=== PATIENT | female | born 1945 | race Caucasian/White ===

== ENCOUNTER 2017-10-30 01:07 | Emergency (ER) | payer MEDICARE, BC ==
[~2017-10-30] VITALS: Ht 177.8 cm; Wt 80.7 kg
[~2017-10-30 01:07] MED LIST: ACETAMINOPHEN-1 EAC1 PO; ASA81BEC; ASPIRIN81 M2 PO; AUGMENTIN 875-1 EACH PO; BONIVA150 MG PO; CALCIUM 500 +1 EAC4 PO; CALCIUM 600 +1 EAC9 PO; CATAPRES0.1 MG PO; CENTRUM SILVER1 EAC4 PO; CLARITIN10 M2 PO; CLARITIN10 MG PO; CO Q-10100 MG PO; DELTASONE20 MG PO; FISH OIL SOFTG1 EACH PO; FLEXERIL PO; HYDROCODON-ACE1 EAC7 PO; HYDROXYZINE HCL25 M1 PO; KEFLEX500 MG PO; LIPITOR10 MG PO; LISINOPRIL10 MG PO; LIVALO2 MG PO; LOTENSIN20 MG PO; LUTEIN20 MG PO; MAGIC MOUTHWASH SWISH&SPIT; MULTI-VITAMIN1 EAC5 PO; NAPROSYN500 MG PO; NITROGLYCERIN0.4 MG; NORCO 5-325 TA1 EACH PO; OMEGA-3 FISH1200 MG PO; PLAVIX 75 MG TA75 M1 PO; RESTASIS1 EACH OPHTHALMIC; SINGULAIR 10 MG10 M1 PO; SORINE 80 MG TA80 MG PO; TOPROL XL25 MG PO; VIMOVO 500-201 EACH; VITAMIN B-650 M1 PO; XARELTO10 MG PO; ZOFRAN ODT4 MG PO; ZPAK PO
[2017-10-30 01:16] VITALS: BP 186/89
== END 2017-10-30 01:30 | disposition home or self-care (01) ==
LOC: M.ERS 01:07
DX: T75.89XA Other specified effects of external causes, initial encounter (principal); Y92.89 Other specified places as the place of occurrence of the external cause; I48.91 Unspecified atrial fibrillation; I10 Essential (primary) hypertension; E78.00 Pure hypercholesterolemia, unspecified; Z88.8 Allergy status to other drugs, medicaments and biological substances

== ENCOUNTER 2017-12-21 21:42 | Emergency (ER) | payer MEDICARE, BC ==
[~2017-12-21] VITALS: Ht 172.7 cm; Wt 79.4 kg
[2017-12-21] MEDS ORDERED: NORVASC5 MG (22:00)
[2017-12-21] MEDS ORDERED: FLONASE 0.05%50 MCG (22:01)
[2017-12-21] MEDS ORDERED: FISH OIL 1,001000 M2 (22:01)
[2017-12-21] MEDS ORDERED: TUMS PO (22:01)
[2017-12-21 22:08] LABS: URINE BILIRUBIN NEGATIVE (Negative); URINE BLOOD 2+ (Negative); URINE CLARITY CLEAR; URINE COLOR YELLOW; URINE GLUCOSE-RANDOM NEGATIVE (Negative); URINE KETONES NEGATIVE (Negative); URINE LEUKOCYTES-REFLEX NEGATIVE (Negative); URINE NITRITE-REFLEX NEGATIVE (Negative); URINE PROTEIN NEGATIVE (Negative); URINE SPECIFIC GRAVITY 1.015 (1.005-1.030); URINE UROBILINOGEN 0.2 E.U./dl (0.2-1.0)
[2017-12-21 22:16] LABS: ABSOLUTE BASOPHILS 0.1 thou/uL (0.0-0.2); ABSOLUTE EOSINOPHILS 0.1 thou/uL (0.0-0.7); ABSOLUTE LYMPHOCYTES 1.9 thou/uL (0.8-5.3); ABSOLUTE MONOCYTES 0.9 thou/uL (0.0-1.2); ABSOLUTE NEUTROPHILS 5.5 thou/uL (1.6-8.1); BASOPHILS 0.9 %; EOSINOPHILS 0.9 %; HEMATOCRIT 40.8 % (37.0-47.0); HEMOGLOBIN 13.8 gm/dL (12.0-15.0); LYMPHOCYTES 22.8 %; MCH 31.7 pg (26.0-34.0); MCHC 33.7 g/dL (28.0-37.0); MPV 8.3 fl. (7.2-11.1); NUCLEATED RBCS 0 /100WBC; PLATELET COUNT* 240 thou/uL (150-400); POLYS 64.4 %; RBC 4.34 mil/uL (4.20-5.00); RDW-CV 13.7 % (10.5-14.5); WBC 8.5 thou/uL (4.0-11.0)
[2017-12-21 22:20] LABS: CASTS None Seen /LPF (None Seen); CRYSTALS None Seen /LPF (None Seen); MUCUS 0-3 Light strn/LPF (None Seen); SQUAMOUS 0-3 Few /LPF (0-3); URINE RBC >20 Many /HPF (0-2); URINE WBC-REFLEX 0-5 Rare /HPF (0-5)
[2017-12-21 22:25] LABS: ANION GAP 7 mmol/L (7-16); BUN 22 mg/dL (7-18); CALCIUM 8.9 mg/dL (8.5-10.1); CHLORIDE 102 mmol/L (98-107); CO2 30 mmol/L (21-32); CREATININE 0.7 mg/dL (0.6-1.3); GLUCOSE 101 mg/dL (70-99); POTASSIUM 3.9 mmol/L (3.5-5.1); SODIUM 139 mmol/L (136-145)
[2017-12-21 22:37] LABS: ALBUMIN 3.8 g/dL (3.4-5.0); ALKALINE PHOSPHATASE 74 U/L (46-116); NT-PRO BRAIN NAT PEPTIDE 75 pg/mL (<300); SGOT 22 U/L (15-37); SGPT 22 U/L (30-65); TOTAL BILIRUBIN 0.6 mg/dL (<0.1-1.0); TOTAL PROTEIN 9.4 g/dL (6.4-8.2); TROPONIN-I LEVEL <0.06 ng/mL (<0.06)
[2017-12-21] MEDS ORDERED: OSELB75 PO (23:03)
[2017-12-21 23:24] VITALS: BP 131/65
--- NOTE | 2017-12-22 11:01 | EKG ---
[place] [address] ELECTROCARDIOGRAM REPORT Name: DENIA MAY [id number] Admission: 12/21/17 Attend Phys: Discharge: 12/21/17 Date of : 45 Report #: [id number] THIS REPORT FOR: //name// [facility] ED Test Date: 2017-12-21 Test Time: 21:53:46 Pat Name: DENIA MAY Department: Room: Gender: F Cotton Farmer: INGRID : 1945 Requested By: Cristopher Delgado Order Number: [id number] MD: Rajinder Iqbal Measurements Intervals [place] Rate: 82 P: 65 OR: 190 QRS: 28 QRSD: 132 T: 6 QT: 406 QTc: 475 Interpretive Statements Sinus rhythm Compared to ECG 08/19/2015 23:09:14 First degree AV block no longer present Incomplete right bundle-branch block no longer present Electronically Signed On 12-22-2017 11:00:53 CO OP by Rajinder Iqbal [email or web address] <ELECTRONICALLY SIGNED> By: Rajinder Iqbal MD, [facility] 12/22/17 1100 52 52 Rajinder Iqbal MD, FACC /EPI
== END 2017-12-21 23:25 | disposition home or self-care (01) ==
LOC: M.ERS 21:42
PROVIDERS: Emergency Medicine Emergency Medical Services
DX: J09.X2 Influenza due to identified novel influenza A virus with other respiratory manifestations (principal); J10.1 Influenza due to other identified influenza virus with other respiratory manifestations; I10 Essential (primary) hypertension; I48.91 Unspecified atrial fibrillation; M54.9 Dorsalgia, unspecified; E78.00 Pure hypercholesterolemia, unspecified; Z88.8 Allergy status to other drugs, medicaments and biological substances

== ENCOUNTER → 2018-05-05 | Outpatient (CLI) | payer MEDICARE, BC ==
[~2018-05-05] MED LIST changes: +FISH OIL 1,001000 M2; +FLONASE 0.05%50 MCG; +MEDROL DOSPAK21 TA1 PO; +NORVASC5 MG; +NORVASC5 MG PO; +OSELB75 PO; +PANTOPRAZOLE SO40 M1 PO; +TUMS PO
[2018-05-05 10:18] LABS: CREATININE 0.6 mg/dL (0.6-1.3)
== END ==
LOC: M.LAB 09:53
PROVIDERS: Urology
DX: R31.29 Other microscopic hematuria (principal); M81.0 Age-related osteoporosis without current pathological fracture

== ENCOUNTER 2018-05-10 23:13 | Emergency (ER) | payer MEDICARE, BC ==
[~2018-05-10] VITALS: Ht 170.2 cm; Wt 75.3 kg
[~2018-05-10 23:13] MED LIST changes: -MEDROL DOSPAK21 TA1 PO; -NORVASC5 MG PO; -PANTOPRAZOLE SO40 M1 PO
[2018-05-10] MEDS ORDERED: NORVASC5 MG PO (23:33)
[2018-05-11 00:01] LABS: ABSOLUTE BASOPHILS 0.1 thou/uL (0.0-0.2); ABSOLUTE EOSINOPHILS 0.1 thou/uL (0.0-0.7); ABSOLUTE LYMPHOCYTES 1.8 thou/uL (0.8-5.3); ABSOLUTE MONOCYTES 0.7 thou/uL (0.0-1.2); ABSOLUTE NEUTROPHILS 3.7 thou/uL (1.6-8.1); BASOPHILS 1.3 %; EOSINOPHILS 1.3 %; HEMOGLOBIN 12.9 gm/dL (12.0-15.0); LYMPHOCYTES 28.5 %; MCH 31.2 pg (26.0-34.0); MCV 94.7 fL (80.0-100.0); MONOCYTES 10.7 %; MPV 8.3 fl. (7.2-11.1); NUCLEATED RBCS 0 /100WBC; PLATELET COUNT* 226 thou/uL (150-400); POLYS 58.2 %; RBC 4.12 mil/uL (4.20-5.00); RDW-CV 13.6 % (10.5-14.5); WBC 6.3 thou/uL (4.0-11.0)
[2018-05-11 00:17] LABS: ANION GAP 3 mmol/L (7-16); BUN 20 mg/dL (7-18); CALCIUM 9.3 mg/dL (8.5-10.1); CHLORIDE 103 mmol/L (98-107); CO2 31 mmol/L (21-32); CREATININE 0.6 mg/dL (0.6-1.3); GLUCOSE 115 mg/dL (70-99); POTASSIUM 3.6 mmol/L (3.5-5.1); SODIUM 137 mmol/L (136-145)
[2018-05-11 00:24] LABS: ALBUMIN 3.3 g/dL (3.4-5.0); ALKALINE PHOSPHATASE 87 U/L (46-116); LIPASE 153 U/L (73-393); SGOT 17 U/L (15-37); SGPT 21 U/L (30-65); TOTAL BILIRUBIN 0.3 mg/dL (<0.1-1.0); TOTAL PROTEIN 8.6 g/dL (6.4-8.2); TROPONIN-I LEVEL <0.06 ng/mL (<0.06)
[2018-05-11] MEDS ORDERED: MEDROL DOSPAK21 TA1 PO (00:36)
[2018-05-11 00:40] VITALS: BP 120/70
--- NOTE | 2018-05-11 14:31 | EKG ---
[place] [address] ELECTROCARDIOGRAM REPORT Name: DENIA MAY Room: [facility]#: [id number] Admission: 05/10/18 Attend Phys: Discharge: 05/11/18 Date of : 45 Report #: [id number] THIS REPORT FOR: //name// [facility] ED Test Date: 2018-05-10 Test Time: 23:29:36 Pat Name: DENIA MAY Department: Room: Gender: F Race Engine Builder: : 1945 Requested By: Mj Mandujano Order Number: [id number] MD: Austin Estrella Measurements Intervals [place] Rate: 71 P: 69 NE: 189 QRS: 19 QRSD: 100 T: 31 QT: 430 QTc: 468 Interpretive Statements Sinus rhythm Probable left atrial enlargement Low voltage, precordial leads Baseline wander in lead(s) I Compared to ECG 12/21/2017 21:53:46 Low QRS voltage now present Electronically Signed On 05-11-2018 14:31:20 CDT by Austin Estrella [email or web address] <ELECTRONICALLY SIGNED> By: Austin Estrella MD, FACC 05/11/18 1431 2329 2329 Austin Estrella MD, [facility] /EPI
== END 2018-05-11 00:41 | disposition home or self-care (01) ==
LOC: M.ERS 23:13
PROVIDERS: Emergency Medicine
DX: M54.9 Dorsalgia, unspecified (principal); I48.91 Unspecified atrial fibrillation; I10 Essential (primary) hypertension; E78.00 Pure hypercholesterolemia, unspecified; Z88.8 Allergy status to other drugs, medicaments and biological substances

== ENCOUNTER 2018-07-13 11:58 | Observation (INO) | payer MEDICARE, BC ==
[~2018-07-13] VITALS: Ht 172.7 cm; Wt 75.7 kg
[~2018-07-13 11:58] MED LIST changes: +MEDROL DOSPAK21 TA1 PO; +NORVASC5 MG PO
[2018-07-13 12:21] LABS: ABSOLUTE BASOPHILS 0.1 thou/uL (0.0-0.2); ABSOLUTE EOSINOPHILS 0.1 thou/uL (0.0-0.7); ABSOLUTE LYMPHOCYTES 1.9 thou/uL (0.8-5.3); ABSOLUTE MONOCYTES 0.5 thou/uL (0.0-1.2); ABSOLUTE NEUTROPHILS 3.9 thou/uL (1.6-8.1); BASOPHILS 1.3 %; EOSINOPHILS 0.9 %; HEMOGLOBIN 12.9 gm/dL (12.0-15.0); LYMPHOCYTES 29.8 %; MCH 31.2 pg (26.0-34.0); MCHC 33.2 g/dL (28.0-37.0); MONOCYTES 8.1 %; MPV 7.8 fl. (7.2-11.1); NUCLEATED RBCS 0 /100WBC; PLATELET COUNT* 273 thou/uL (150-400); POLYS 59.9 %; RBC 4.15 mil/uL (4.20-5.00); RDW-CV 13.9 % (10.5-14.5); WBC 6.4 thou/uL (4.0-11.0)
[2018-07-13 12:36] LABS: APTT 38.8 Seconds (25.0-31.3); INR 1.1; PROTIME 11.3 Seconds (9.20-11.50)
[2018-07-13 12:47] LABS: ANION GAP 6 mmol/L (7-16); BUN 19 mg/dL (7-18); CHLORIDE 101 mmol/L (98-107); CO2 29 mmol/L (21-32); CREATININE 0.7 mg/dL (0.6-1.3); GLUCOSE 91 mg/dL (70-99); POTASSIUM 4.1 mmol/L (3.5-5.1); SODIUM 136 mmol/L (136-145)
[2018-07-13 13:14] LABS: ALBUMIN 3.4 g/dL (3.4-5.0); ALKALINE PHOSPHATASE 82 U/L (46-116); CK-MB MASS 0.6 ng/mL (<0.5-3.6); LIPASE 169 U/L (73-393); MAGNESIUM 2.3 mg/dL (1.8-2.4); NT-PRO BRAIN NAT PEPTIDE 108 pg/mL (<300); SGOT 26 U/L (15-37); SGPT 25 U/L (30-65); TOTAL BILIRUBIN 0.5 mg/dL (<0.1-1.0); TROPONIN-I LEVEL <0.06 ng/mL (<0.06)
[2018-07-13 13:44] VITALS: BP 133/62
[2018-07-13 14:20] VITALS: BP 138/70
[2018-07-13 14:48] LABS: URINE BILIRUBIN NEGATIVE (Negative); URINE BLOOD NEGATIVE (Negative); URINE CLARITY CLEAR; URINE COLOR YELLOW; URINE GLUCOSE-RANDOM NEGATIVE (Negative); URINE KETONES NEGATIVE (Negative); URINE LEUKOCYTES-REFLEX TRACE (Negative); URINE NITRITE-REFLEX NEGATIVE (Negative); URINE PROTEIN NEGATIVE (Negative); URINE SPECIFIC GRAVITY 1.015 (1.005-1.030); URINE UROBILINOGEN 0.2 E.U./dl (0.2-1.0)
[2018-07-13 15:25] VITALS: BP 127/66
[2018-07-13 15:36] LABS: BACTERIA-REFLEX 1-9 Few /HPF (None Seen); CASTS None Seen /LPF (None Seen); CRYSTALS None Seen /LPF (None Seen); SQUAMOUS 0-3 Few /LPF (0-3); URINE RBC 0-2 Rare /HPF (0-2); URINE WBC-REFLEX 0-5 Rare /HPF (0-5)
--- NOTE | 2018-07-13 16:24 | 2DMMODE ---
[place] [address] 2 D/M-MODE ECHOCARDIOGRAM Name: DENIA MAY Room: [address] IN [facility]#: [id number] Admission: 07/13/18 Attend Phys: Em Pina, Discharge: Date of : 45 Date of Service: 07/13/18 1624 Report #: [id number] THIS REPORT FOR: //name// APPROVED REPORT Study performed: 07/13/2018 14:15:15 EXAM: Comprehensive 2D, Doppler, and color-flow Echocardiogram Patient Location: In-Patient Room #: 200 Status: routine BSA: 1.89 HR: 67 bpm BP: 121/69 mmHg Rhythm: NSR Other Information Study Quality: Good Indications Chest Pain 2D Dimensions LVEF(%): 55.67 (>50%) IVSd: 8.80 (7-11mm) LVOT Diam: 19.47 (18-24mm) LVDd: 38.41 mm PWd: 8.75 (7-11mm) Ascending Ao: 33.23 (22-36mm) LVDs: 27.46 (25-40mm) Aortic Root: 34.72 mm Santiago's LVEF: 55.67 % Volumes Left Atrial Volume (Systole) LA ESV Index: 26.00 mL/m2 Aortic Valve AoV Peak Robin.: 1.31 m/s AO Peak Gr.: 6.84 mmHg LVOT Max P.68 mmHg AO Mean Gr.: 3.72 mmHg LVOT Mean P.28 mmHg LVOT Max V: 1.08 m/s AO V2 VTI: 27.99 cm LVOT Mean V: 0.70 m/s ROSALIND (VTI): 2.59 cm2 LVOT V1 VTI: 24.38 cm Mitral Valve E/A Ratio: 1.22 [place] [address] 2 D/M-MODE ECHOCARDIOGRAM Name: DENIA MAY Room: [address] [facility].#: [id number] Admission: 07/13/18 Attend Phys: Em Pina, Discharge: Date of : 45 Date of Service: 07/13/18 1624 Report #: [id number] MV Decel. Time: 200.98 ms MV E Max Robin.: 1.12 m/s MV PHT: 58.28 ms MVA (PHT): 3.77 cm2 TDI E/Lateral E': 10.18 E/Medial E': 7.47 Medial E' Robin.: 0.15 m/s Lateral E' Robin.: 0.11 m/s Pulmonary Valve PV Peak Robin.: 0.83 m/s PV Peak Gr.: 2.74 mmHg Tricuspid Valve RAP Estimate: 5.00 mmHg TR Peak Gr.: 29.45 mmHg RVSP: 34.45 mmHg PA Pressure: 34.45 mmHg Left Ventricle The left ventricle is normal size. There is normal LV segmental wall motion. There is normal left ventricular wall thickness. Left ventricular systolic function is normal. LVEF is 65%. Grade II - pseudonormal filling dynamics. Right Ventricle The right ventricle is normal size. The right ventricular systolic function is normal. Atria The left atrium size is normal. The right atrium size is normal. Aortic Valve The aortic valve is normal in structure. No aortic regurgitation is present. There is no aortic valvular stenosis. Mitral Valve The mitral valve is normal in structure. Mild mitral regurgitation. No evidence of mitral valve stenosis. Tricuspid Valve The tricuspid valve is normal in structure. Trace tricuspid regurgitation. Mild pulmonary hypertension. Pulmonic Valve The pulmonary valve is normal in structure. There [place] [address] 2 D/M-MODE ECHOCARDIOGRAM Name: DENIA MAY Mayra Room: [address]#: [id number] Admission: 07/13/18 Attend Phys: Em Pina, Discharge: Date of : 45 Date of Service: 07/13/18 1624 Report #: [id number] valvular regurgitation. Great Vessels The aortic root is normal in size. IVC is normal in size and collapses with >50% inspiration Pericardium There is no pericardial effusion. <Conclusion> The left ventricle is normal size. There is normal left ventricular wall thickness. Left ventricular systolic function is normal. LVEF is 65%. Grade II - pseudonormal filling dynamics. Mild mitral regurgitation. Trace tricuspid regurgitation. Mild pulmonary hypertension. <ELECTRONICALLY SIGNED> By: Marco May MD, FACC 07/13/18 1624 1624 1624 Marco May MD, FACC /INF
--- NOTE | 2018-07-13 17:16 | EKG ---
[place] [address] ELECTROCARDIOGRAM REPORT Name: DENIA MAY Room: [address] ADM IN [facility]#: [id number] Admission: 07/13/18 Attend Phys: Em Pina MD Discharge: Date of : 45 Report #: [id number] THIS REPORT FOR: //name// [facility] ED Test Date: 2018-07-13 Test Time: 12:02:22 Pat Name: DENIA MAY Department: Room: [facility] Gender: F Airline Lounge Receptionist: JERI : 1945 Requested By: Karri Shay Order Number: [id number] MD: Rajinder Iqbal Measurements Intervals [place] Rate: 72 P: 53 LA: 188 QRS: 17 QRSD: 81 T: 3 QT: 431 QTc: 472 Interpretive Statements Sinus rhythm Compared to ECG 05/10/2018 23:29:36 No significant changes Electronically Signed On 07-13-2018 17:15:52 CDT by Rajinder Iqbal [email or web address] <ELECTRONICALLY SIGNED> By: Rajinder Iqbal MD, [facility] 07/13/18 1715 1202 120 Rajinder Iqbal MD, FAC /EPI
[2018-07-13 20:00] VITALS: BP 134/78
[2018-07-13 23:51] VITALS: BP 118/67
[2018-07-14 04:00] VITALS: BP 123/65
[2018-07-14 07:30] VITALS: BP 123/71
[2018-07-14 11:49] VITALS: BP 115/69
[2018-07-14] MEDS ORDERED: PANTOPRAZOLE SO40 M1 PO (13:14)
[2018-07-14 15:37] VITALS: BP 119/71
[2018-07-14 15:39] VITALS: BP 115/69
--- NOTE | 2018-07-14 16:37 | CARDNUC ---
[place] [address] CARDIAC NUCLEAR IMAGING REPORT Name: DENIA MAY [address]#: [id number] Admission: 07/13/18 Attend Phys: Em Pina, Discharge: Date of : 45 Date of Service: 07/14/18 1637 Report #: [id number] THIS REPORT FOR: //name// APPROVED REPORT Study performed: 07/14/2018 07:31:00 Indication: Chest pain Patient Location: In-Patient Stress Tech: [facility] Stress Nurse: Mei Fox RN Ht: 5 ft 8 in Wt: 167 lbs BSA: 1.89 m2 BMI: 25.38 Medical History Medical History: cad, hyperlipidemia, hypertension, pvd Medications: xarelto, atorvastatin, sotalol, amlodipine, aspirin 325 Allergies: nkda Cardiac Risk Factors: age, hyperlipidemia, hypertension, pvd Previous Cardiac Procedures: none Exercise History: Indeterminate Resting Data Rest SPECT myocardial perfusion imaging was performed in supine position 30 minutes following the intravenous injection of 10.5 mCi of Tc-99m Sestamibi. Time of rest injection: 12:10 The images were gated to evaluate regional wall motion and calculate left ventricular ejection fraction. Administration Route: IV Administration Site: Left AC Pharmacologic Stress Pharmacologic stress test was performed by injecting Regadenoson 0.4 mg IV push over 10-15 seconds immediately followed by the intravenous injection of 35.5 mCi of Tc-99m Sestamibi. Time of stress injection: 13:25 Administration Route: IV Administration Site: Left AC Heart Rate at time of stress injection: 101 bpm. Gated Stress SPECT was performed 40 minutes after stress injection. The images were gated to evaluate regional [place] [address] CARDIAC NUCLEAR IMAGING REPORT Name: DENIA MAY Room: [address]#: [id number] Admission: 07/13/18 Attend Phys: Em Pina, Discharge: Date of : 45 Date of Service: 07/14/18 1637 Report #: [id number] left ventricular ejection fraction. Prone imaging was performed. Stress Test Details Stress Test: Pharmacologic stress testing performed using 0.4 mg of regadenoson per 5 mL given IV over 10 seconds. Reason for pharmacologic stress test: physical limitation. HR Max Heart Rate (APMHR): 147 bpm Resting HR: 67 bpm Target HR (85% APMHR): 124 bpm Max HR Achieved: 101 bpm % of APMHR: 68 Recovery HR: 97 bpm BP Resting BP: 114/72 mmHg Recovery BP: 130/74 mmHg ECG Resting ECG: Sinus Rhythm, normal EKG Stress ECG: Sinus Tachycardia ST Change: None Arrhythmia: None Recovery ECG: Sinus Rhythm, normal EKG Recovery ST Change: None Recovery Arrhythmia: None Clinical Reason for Termination: Completed protocol Exercise duration: 0 min sec Exercise capacity: 1 METs The patient had no significant symptoms with Lexiscan infusion. Stress ECG Conclusion The baseline 12-lead EKG shows sinus rhythm without significant ST or T wave abnormality. EKGs obtained during and post Lexiscan show sinus rhythm and sinus tachycardia with no significant ST or T wave changes when compared baseline. There were no stress-induced arrhythmias. Study Quality Study: Good Artifact: [place] [address] CARDIAC NUCLEAR IMAGING REPORT Name: DENIA MAY Mayra [address]: [address]#: [id number] Admission: 07/13/18 Attend Phys: Em Pina, Discharge: Date of : 45 Date of Service: 07/14/18 1637 Report #: [id number] At rest, the left ventricular ejection fraction was 84%.. Post stress, the left ventricular ejection was 85%.. TID = 1.02. Perfusion Normal left ventricular perfusion. Wall Motion Normal left ventricular wall motion. Nuclear Conclusion ECG Findings: negative for ischemia Clinical Findings: negative for ischemia Nuclear Findings: negative for ischemia Exercise Capacity: not assessed Left Ventricular Function: normal Risk Study: low Myocardial perfusion images show no defect to suggest infarct or ischemia. Left ventricular systolic function is normal. This is a low risk study. <Conclusion> The baseline 12-lead EKG shows sinus rhythm without significant ST or T wave abnormality. EKGs obtained during and post Lexiscan show sinus rhythm and sinus tachycardia with no significant ST or T wave changes when compared baseline. There were no stress-induced arrhythmias. <ELECTRONICALLY SIGNED> By: Marco May MD, FACC 07/14/18 1637 1637 1637 Marco May MD, FACC /INF
== END 2018-07-14 17:26 | disposition home or self-care (01) ==
LOC: M.ERS 11:58 → M.2W 13:03 → M.TBA-ER 13:03 → M.2W 13:55
PROVIDERS: Family Medicine; ADMIT Internal Medicine
DX: R07.9 Chest pain, unspecified (principal); M35.00 Sjogren syndrome, unspecified; I10 Essential (primary) hypertension; E78.00 Pure hypercholesterolemia, unspecified; I48.91 Unspecified atrial fibrillation; Q24.5 Malformation of coronary vessels; I48.0 Paroxysmal atrial fibrillation; E78.5 Hyperlipidemia, unspecified; Z79.01 Long term (current) use of anticoagulants; Z98.890 Other specified postprocedural states

== ENCOUNTER → 2018-08-24 | Outpatient (CLI) | payer MEDICARE, BC ==
[~2018-08-24] MED LIST changes: +PANTOPRAZOLE SO40 M1 PO
== END ==
LOC: M.RAD 14:41
DX: Z12.31 Encounter for screening mammogram for malignant neoplasm of breast (principal); M85.89 Other specified disorders of bone density and structure, multiple sites; Z78.0 Asymptomatic menopausal state

== ENCOUNTER 2019-02-04 14:23 | Emergency (ER) | payer MEDICARE, BC ==
[~2019-02-04] VITALS: Ht 172.7 cm; Wt 77.1 kg
[2019-02-04] MEDS ORDERED: NATURAL LUTEIN20 MG PO (14:32)
[2019-02-04 14:58] LABS: ABSOLUTE BASOPHILS 0.1 thou/uL (0.0-0.2); ABSOLUTE EOSINOPHILS 0.1 thou/uL (0.0-0.7); ABSOLUTE LYMPHOCYTES 1.4 thou/uL (0.8-5.3); ABSOLUTE MONOCYTES 0.6 thou/uL (0.0-1.2); ABSOLUTE NEUTROPHILS 3.4 thou/uL (1.6-8.1); EOSINOPHILS 1.2 %; HEMATOCRIT 39.7 % (37.0-47.0); HEMOGLOBIN 13.7 gm/dL (12.0-15.0); LYMPHOCYTES 25.7 %; MCH 32.1 pg (26.0-34.0); MCHC 34.4 g/dL (28.0-37.0); MCV 93.1 fL (80.0-100.0); MONOCYTES 10.9 %; MPV 8.4 fl. (7.2-11.1); NUCLEATED RBCS 0 /100WBC; PLATELET COUNT* 251 thou/uL (150-400); POLYS 61.2 %; RBC 4.26 mil/uL (4.20-5.00); WBC 5.6 thou/uL (4.0-11.0)
[2019-02-04 15:09] LABS: APTT 37.4 Seconds (25.0-31.3); INR 1.2; PROTIME 12.4 Seconds (9.20-11.50)
[2019-02-04 15:13] LABS: ANION GAP 7 mmol/L (7-16); BUN 18 mg/dL (7-18); CALCIUM 8.9 mg/dL (8.5-10.1); CHLORIDE 103 mmol/L (98-107); CO2 28 mmol/L (21-32); CREATININE 0.8 mg/dL (0.6-1.3); GLUCOSE 111 mg/dL (70-99); POTASSIUM 3.8 mmol/L (3.5-5.1); SODIUM 138 mmol/L (136-145); TROPONIN-I LEVEL <0.06 ng/mL (<0.06)
[2019-02-04 15:22] LABS: ALBUMIN 3.7 g/dL (3.4-5.0); ALKALINE PHOSPHATASE 83 U/L (46-116); NT-PRO BRAIN NAT PEPTIDE 149 pg/mL (<300); SGOT 21 U/L (15-37); SGPT 25 U/L (30-65); TOTAL BILIRUBIN 0.5 mg/dL (<0.1-1.0); TOTAL PROTEIN 9.3 g/dL (6.4-8.2)
[2019-02-04 15:23] LABS: URINE BILIRUBIN NEGATIVE (Negative); URINE BLOOD NEGATIVE (Negative); URINE CLARITY CLEAR; URINE COLOR YELLOW; URINE GLUCOSE-RANDOM NEGATIVE (Negative); URINE KETONES NEGATIVE (Negative); URINE NITRITE-REFLEX NEGATIVE (Negative); URINE PROTEIN NEGATIVE (Negative)
[2019-02-04 15:31] LABS: URINE LEUKOCYTES-REFLEX 3+ (Negative)
[2019-02-04 15:38] LABS: SQUAMOUS >10 Many /LPF (0-3)
[2019-02-04 15:39] LABS: BACTERIA-REFLEX 1-9 Few /HPF (None Seen); CASTS None Seen /LPF (None Seen); CRYSTALS None Seen /LPF (None Seen); URINE RBC 0-2 Rare /HPF (0-2); URINE WBC-REFLEX 6-15 Few /HPF (0-5)
[2019-02-04] MEDS ORDERED: BACTRIM DS TAB1 EACH PO (16:01)
[2019-02-04] MEDS ORDERED: MECLIZINE HCL25 M1 PO (16:01)
[2019-02-04 16:57] VITALS: BP 141/72
--- NOTE | 2019-02-05 11:52 | EKG ---
[place] [address] ELECTROCARDIOGRAM REPORT Name: DENIA MAY Room: [facility]#: [id number] Admission: 02/04/19 Attend Phys: Discharge: 02/04/19 Date of : 45 Report #: [id number] THIS REPORT FOR: //name// [facility] ED Test Date: 2019-02-04 Test Time: 14:30:57 Pat Name: DENIA MAY Department: Room: Gender: F Purchasing Associate: Jazmin PAN : 1945 Requested By: Betty Major Order Number: [id number] MD: Rajinder Iqbal Measurements Intervals [place] Rate: 65 P: 38 VA: 194 QRS: 40 QRSD: 93 T: 25 QT: 454 QTc: 473 Interpretive Statements Sinus rhythm Compared to ECG 07/13/2018 12:02:22 no change Electronically Signed On 02-05-2019 11:51:49 CDT by Rajinder Iqbal [email or web address] <ELECTRONICALLY SIGNED> By: Rajinder Iqbal MD, [facility] 02/05/19 1151 1430 1430 Rajinder Iqbal MD, FACC /EPI
== END 2019-02-04 16:45 | disposition home or self-care (01) ==
LOC: M.ERS 14:23
PROVIDERS: Nurse Practitioner Family
DX: N39.0 Urinary tract infection, site not specified (principal); I95.1 Orthostatic hypotension; I10 Essential (primary) hypertension; E78.00 Pure hypercholesterolemia, unspecified; I48.91 Unspecified atrial fibrillation

== ENCOUNTER 2019-04-10 22:49 | Emergency (ER) | payer MEDICARE, BC ==
[~2019-04-10] VITALS: Ht 172.7 cm; Wt 79.4 kg
[~2019-04-10 22:49] MED LIST changes: +BACTRIM DS TAB1 EACH PO; +MECLIZINE HCL25 M1 PO; +NATURAL LUTEIN20 MG PO
[2019-04-10] MEDS ORDERED: CEFUROXIME500 MG PO (23:17)
[2019-04-10 23:27] VITALS: BP 177/80
== END 2019-04-10 23:28 | disposition home or self-care (01) ==
LOC: M.ERS 22:49
DX: S80.862A Insect bite (nonvenomous), left lower leg, initial encounter (principal); I10 Essential (primary) hypertension; E78.00 Pure hypercholesterolemia, unspecified; I48.91 Unspecified atrial fibrillation; W57.XXXA Bitten or stung by nonvenomous insect and other nonvenomous arthropods, initial encounter; Y93.89 Activity, other specified; Y92.89 Other specified places as the place of occurrence of the external cause; Y99.8 Other external cause status

== ENCOUNTER 2019-09-04 17:14 | Observation (INO) | payer MEDICARE, BC ==
[~2019-09-04] VITALS: Ht 175.3 cm; Wt 81.4 kg
[~2019-09-04 17:14] MED LIST changes: +CEFUROXIME500 MG PO
[2019-09-04 17:17] VITALS: BP 130/85
[2019-09-04] MEDS ORDERED: BACTRIM DS TAB1 EAC1 PO (17:24)
[2019-09-04 17:36] LABS: ABSOLUTE BASOPHILS 0.1 thou/uL (0.0-0.2); ABSOLUTE EOSINOPHILS 0.1 thou/uL (0.0-0.7); ABSOLUTE LYMPHOCYTES 1.5 thou/uL (0.8-5.3); ABSOLUTE MONOCYTES 0.7 thou/uL (0.0-1.2); ABSOLUTE NEUTROPHILS 3.3 thou/uL (1.6-8.1); BASOPHILS 0.9 %; EOSINOPHILS 1.5 %; HEMOGLOBIN 13.3 gm/dL (12.0-15.0); LYMPHOCYTES 26.3 %; MCH 31.9 pg (26.0-34.0); MCHC 34.2 g/dL (28.0-37.0); MCV 93.4 fL (80.0-100.0); MONOCYTES 12.4 %; NUCLEATED RBCS 0 /100WBC; PLATELET COUNT* 258 thou/uL (150-400); POLYS 58.9 %; RBC 4.18 mil/uL (4.20-5.00); RDW-CV 14.3 % (10.5-14.5); WBC 5.7 thou/uL (4.0-11.0)
[2019-09-04 17:48] LABS: CALCIUM 8.8 mg/dL (8.5-10.1); CREATININE 1.1 mg/dL (0.6-1.3); POTASSIUM 3.9 mmol/L (3.5-5.1)
[2019-09-04 17:58] LABS: ALBUMIN 3.6 g/dL (3.4-5.0); TOTAL BILIRUBIN 0.3 mg/dL (<0.1-1.0); TOTAL PROTEIN 9.2 g/dL (6.4-8.2)
[2019-09-04 18:19] LABS: APTT 35.5 Seconds (25.0-31.3); PROTIME 10.7 Seconds (9.20-11.50)
--- NOTE | 2019-09-04 18:52 | NUR ---
REPORT GIVEN ESAU LACY WHO IS TO ASSUME PT CARE AT THIS TIME.
[2019-09-04 19:28] VITALS: BP 124/75
[2019-09-04 20:00] VITALS: BP 137/68
--- NOTE | 2019-09-04 20:00 | NUR ---
RECEIVED REPORT FROM ER AND ADMITTED TO ROOM AT 1945. TELEMETRY APPLIED SHOWING A-FIB AND HAVING SINUS BEATS ALSO. CARDIZEM INFUSING AT 5MG/HR. PT DENIES CP BUT HAVING A HEADACH. SEE ADMISSION ASSESSMENT AND HX. WILL CONT TO MONITOR AND ASSIST NEEDED.
[2019-09-04] MEDS ORDERED: RESTASIS1 EACH OPHTHALMIC (20:51)
[2019-09-05] VITALS: BP 109/59
[2019-09-05 04:00] VITALS: BP 108/60
--- NOTE | 2019-09-05 06:50 | NUR ---
SLEPT WELL TONIGHT. GAIT STEADY TO AND FROM BR INDEPENDENTLY. TELEMETRY NOW SHOWING SR WITH CARDIZEM INFUSING. DENIES CP OR MCCARTHY. HS GOALS OF REST AND SAFETY ACHIEVED. HOURLY ROUNDING OBSERVED. NPO SINCE [place] FOR POSS TEST TODAY.
[2019-09-05 08:00] VITALS: BP 106/57
[2019-09-05 08:55] LABS: MAGNESIUM 2.2 mg/dL (1.8-2.4); PHOSPHORUS* 3.4 mg/dL (2.5-4.9)
--- NOTE | 2019-09-05 12:12 | EKG ---
[place] [address] ELECTROCARDIOGRAM REPORT Name: YADIRADENIA Room: [address] M.R.#: [id number] Admission: 09/04/19 Attend Phys: Andriy Alicea MD Discharge: Date of : 45 Report #: [id number] THIS REPORT FOR: //name// [facility] ED Test Date: 2019-09-04 Test Time: 17:20:25 Pat Name: DENIA MAY Department: Room: [facility] Gender: F Ticket Chopper Assembler: : 1945 Requested By: Rosanne Biggs Order Number: [id number] MD: Jeremy Prabhakar Measurements Intervals [place] Rate: 136 P: [place]: QRS: 45 QRSD: 100 T: -30 QT: 333 QTc: 501 Interpretive Statements Atrial flutter with predominantly 2;1 AV block Low voltage, precordial leads Repolarization abnormality, prob rate related Prolonged QT interval Compared to ECG 02/04/2019 14:30:57 Low QRS voltage now present Early repolarization now present Prolonged QT interval now present Sinus rhythm no longer present Electronically Signed On 09-05-2019 12:12:29 LEAD SOFTWARE QA ENGINEER by Jeremy Prabhakar [email or web address] <ELECTRONICALLY SIGNED> By: Jeremy Prabhakar MD, FACC 09/05/19 1212 1720 1720 Jeremy Prabhakar MD, FAC /EPI
--- NOTE | 2019-09-05 12:13 | EKG ---
[place] [address] ELECTROCARDIOGRAM REPORT Name: YADIRADENIA Room: [address] M.R.#: [id number] Admission: 09/04/19 Attend Phys: Andriy Alicea MD Discharge: Date of : 45 Report #: [id number] THIS REPORT FOR: //name// [facility] ED Test Date: 2019-09-04 Test Time: 17:40:34 Pat Name: DENIA MAY Department: Room: [facility] Gender: F Makeup Sales Consultant: Timi Vargas : 1945 Requested By: Rosanne Biggs Order Number: [id number] MD: Jeremy Prabhakar Measurements Intervals [place] Rate: 95 P: 57 CA: 226 QRS: 43 QRSD: 87 T: 21 QT: 377 QTc: 474 Interpretive Statements Sinus rhythm Atrial premature complexes Prolonged CA interval Low voltage, precordial leads Compared to ECG 02/04/2019 14:30:57 Atrial premature complex(es) now present First degree AV block now present Low QRS voltage now present Electronically Signed On 09-05-2019 12:12:43 SHIPPING WEIGHER by Jeremy Prabhakar [email or web address] <ELECTRONICALLY SIGNED> By: Jeremy Prabhakar MD, FACC 09/05/19 1212 1740 1740 Jeremy Prabhakar MD, FACC /EPI
--- NOTE | 2019-09-05 12:13 | EKG ---
[place] [address] ELECTROCARDIOGRAM REPORT Name: YADIRADENIAELIEZER CRAIN Room: [address] M.R.#: [id number] Admission: 09/04/19 Attend Phys: Andriy Alicea MD Discharge: Date of : 45 Report #: [id number] THIS REPORT FOR: //name// [facility] ED Test Date: 2019-09-04 Test Time: 17:41:54 Pat Name: DENIA MAY Department: Room: [facility] Gender: F Wastewater Manager: Timi Vargas : 1945 Requested By: Rosanne Biggs Order Number: [id number] MD: Jeremy Prabhakar Measurements Intervals [place] Rate: 82 P: [place]: QRS: 43 QRSD: 97 T: 21 QT: 426 QTc: 498 Interpretive Statements Atrial fibrillation Low voltage, extremity and precordial leads Borderline prolonged QT interval Baseline wander in lead(s) V1 Compared to ECG 02/04/2019 14:30:57 Low QRS voltage now present Sinus rhythm no longer present Electronically Signed On 09-05-2019 12:13:13 SALES SERVICE MANAGER by Jeremy Prabhakar [email or web address] <ELECTRONICALLY SIGNED> By: Jeremy Prabhakar MD, FACC 09/05/19 1213 1741 1741 Jeremy Prabhakar MD, FACC /EPI
--- NOTE | 2019-09-05 12:15 | EKG ---
[place] [address] ELECTROCARDIOGRAM REPORT Name: DENIA MAY Room: [address] M.R.#: [id number] Admission: 09/04/19 Attend Phys: Andriy Alicea MD Discharge: Date of : 45 Report #: [id number] THIS REPORT FOR: //name// [facility] Test Date: 2019-09-05 Test Time: 09:40:54 Pat Name: DENIA MAY Department: Room: [address] Gender: F Digging Machine Operator: : 1945 Requested By: Woo Baeza Order Number: [id number] Jarett MD: Jeremy Prabhakar Measurements Intervals [place] Rate: 68 P: 49 OR: 212 QRS: 29 QRSD: 84 T: 12 QT: 443 QTc: 472 Interpretive Statements Sinus rhythm Borderline prolonged OR interval Low voltage, precordial leads Compared to ECG 02/04/2019 14:30:57 Low QRS voltage now present Electronically Signed On 09-05-2019 12:15:01 PATIENT REGISTRATION SUPERVISOR by Jeremy Prabhakar [email or web address] <ELECTRONICALLY SIGNED> By: Jeremy Prabhakar MD, [facility] 09/05/19 1215 0940 0940 Jeremy Prabhakar MD, [facility] /EPI
[2019-09-05 12:43] VITALS: BP 109/61
[2019-09-05 12:53] LABS: AMP/METHAMP Negative (Negative); BARBITURATES Negative (Negative); BENZODIAZEPINES Negative (Negative); COCAINE Negative (Negative); METHADONE Negative (Negative); OPIATES Negative (Negative); PCP Negative (Negative); THC Negative (Negative)
--- NOTE | 2019-09-05 14:01 | 2DMMODE ---
[place] [address] 2 D/M-MODE ECHOCARDIOGRAM Name: YADIRA,DENIAELIEZER CRAIN Room: [address] Lola Sharma#: [id number] Admission: 09/04/19 Attend Phys: Andriy Alicea, Discharge: Date of : 45 Date of Service: 09/05/19 1400 Report #: [id number] THIS REPORT FOR: //name// APPROVED REPORT Study performed: 09/05/2019 10:42:31 EXAM: Comprehensive 2D, Doppler, and color-flow Echocardiogram Patient Location: In-Patient Room #: 201 Status: routine BSA: 1.98 HR: 70 bpm BP: 106/57 mmHg Rhythm: NSR Other Information Study Quality: Good Indications Atrial Fibrillation 2D Dimensions IVSd: 10.62 (7-11mm) LVOT Diam: 18.89 (18-24mm) LVDd: 40.81 mm PWd: 9.46 (7-11mm) Ascending Ao: 33.52 (22-36mm) LVDs: 21.47 (25-40mm) Aortic Root: 34.08 mm Volumes Left Atrial Volume (Systole) LA ESV Index: 28.70 mL/m2 Aortic Valve AoV Peak Robin.: 1.31 m/s AO Peak Gr.: 6.86 mmHg LVOT Max P.81 mmHg AO Mean Gr.: 3.47 mmHg LVOT Mean P.66 mmHg LVOT Max V: 1.10 m/s AO V2 VTI: 29.77 cm LVOT Mean V: 0.76 m/s ROSALIND (VTI): 2.55 cm2 LVOT V1 VTI: 27.10 cm Mitral Valve E/A Ratio: 1.44 MV Decel. Time: 180.26 ms MV E Max Robin.: 1.11 m/[place] [address] 2 D/M-MODE ECHOCARDIOGRAM Name: DENIA MAY Room: [address] Zachary#: [id number] Admission: 09/04/19 Attend Phys: Andriy Alicea, Discharge: Date of : 45 Date of Service: 09/05/19 1400 Report #: [id number] MV PHT: 52.28 ms MVA (PHT): 4.21 cm2 TDI E/Lateral E': 10.09 E/Medial E': 6.94 Medial E' Robin.: 0.16 m/s Lateral E' Robin.: 0.11 m/s Pulmonary Valve PV Peak Robin.: 0.85 m/s PV Peak Gr.: 2.89 mmHg Left Ventricle The left ventricle is normal size. There is normal LV segmental wall motion. There is normal left ventricular wall thickness. Left ventricular systolic function is normal. The left ventricular ejection fraction is within the normal range. LVEF is 60%. The left ventricular diastolic function is normal. Right Ventricle The right ventricle is normal size. The right ventricular systolic function is normal. Atria The left atrium size is normal. The right atrium size is normal. Aortic Valve The aortic valve is normal in structure. No aortic regurgitation is present. There is no aortic valvular stenosis. Mitral Valve Mitral valve leaflets are calcified. Mild mitral regurgitation. No evidence of mitral valve stenosis. Tricuspid Valve The tricuspid valve is normal in structure. Trace tricuspid regurgitation. Pulmonic Valve The pulmonary valve is normal in structure. There is no pulmonic valvular regurgitation. Great Vessels The aortic root is normal in size. IVC is normal in size and collapses >50% [place] [address] 2 D/M-MODE ECHOCARDIOGRAM Name: DENIA MAY PARAS Room: [address] Zachary#: [id number] Admission: 09/04/19 Attend Phys: Andriy Alicea, Discharge: Date of : 45 Date of Service: 09/05/19 1400 Report #: [id number] Pericardium There is no pericardial effusion. <Conclusion> The left ventricle is normal size. There is normal left ventricular wall thickness. Left ventricular systolic function is normal. The left ventricular ejection fraction is within the normal range. LVEF is 60%. The left ventricular diastolic function is normal. The right ventricle is normal size. The left atrium size is normal. The aortic valve is normal in structure. Mitral valve leaflets are calcified. Mild mitral regurgitation. No evidence of mitral valve stenosis. The tricuspid valve is normal in structure. IVC is normal in size and collapses >50% with inspiration. There is no pericardial effusion. There is normal LV segmental wall motion. <ELECTRONICALLY SIGNED> By: Jeremy Prabhakar MD, FACC 09/05/19 1400 1400 99 Jeremy Prabhakar MD, FACC /INF
--- NOTE | 2019-09-05 14:26 | NUR ---
Pt is A&O. Resides at home with her . Independent and active. No DME. No hx of HH or SNF. Goal is home at dc, no needs. Per Pt, she is hopeful to dc to home today.
[2019-09-05 16:24] VITALS: BP 127/60
[2019-09-05 17:04] LABS: INR 1.3; PROTIME 13.2 Seconds (9.20-11.50)
--- NOTE | 2019-09-05 18:55 | NUR ---
PT VSS, PT SR TO SR 1* AV BLOCK ON TELE, PT CARTIZEM DRIP DCD. PT UP AD DIANA, HOURLY ROUNDING PERFORMED, POSSESSIONS AND CALL LIGHT WITHIN REACH. DVT PROTOCOL IN PLACE.
[2019-09-05 20:00] VITALS: BP 141/67
[2019-09-06] VITALS: BP 104/60
[2019-09-06 04:00] VITALS: BP 111/55
--- NOTE | 2019-09-06 04:45 | NUR ---
ASSUMED CARE OF PT AFTER REPORT AT 1930. PT A&OX4. VSS. PHYSICAL ASSESSMENT COMPLETED AND CHARTED. PT ON RA. PT TRACING SR/SB/1ST DEG ON TELE. PT UP ADLIB TO BSC. PT DENIES ANY PAIN OR DISCOMFORT. PT ABLE TO SLEEP WELL ON BED. CALL LIGHT WITHIN REACH.
[2019-09-06 05:47] LABS: INR 1.1; PROTIME 11.3 Seconds (9.20-11.50)
[2019-09-06 05:53] LABS: CALCIUM 9.1 mg/dL (8.5-10.1); CREATININE 0.8 mg/dL (0.6-1.3); POTASSIUM 3.6 mmol/L (3.5-5.1)
[2019-09-06 05:55] LABS: HEMATOCRIT 39.5 % (37.0-47.0); HEMOGLOBIN 13.1 gm/dL (12.0-15.0); MCH 31.4 pg (26.0-34.0); MCHC 33.3 g/dL (28.0-37.0); MCV 94.2 fL (80.0-100.0); MPV 8.5 fl. (7.2-11.1); RBC 4.19 mil/uL (4.20-5.00); RDW-CV 14.3 % (10.5-14.5); WBC 4.9 thou/uL (4.0-11.0)
[2019-09-06] MEDS ORDERED: DILTIAZEM 24HR180 M1 PO (09:53)
[2019-09-06] MEDS ORDERED: ELIQUIS5 MG PO (09:53)
[2019-09-06 12:13] VITALS: BP 114/64
[2019-09-06 15:14] VITALS: BP 114/64
--- NOTE | 2019-09-06 15:55 | NUR ---
ASSUMED PT CARE AT 0700, PT A&O X4, VSS, RA, SECTION WEAVER TRACING SINUS RHYTHM, NO TENDERNESS, WARMTH, OR REDNESS TO LLE NOTED, FULL ASSESSMENT CHARTED. PT DISCHARGED HOME WITH SPOUSE AT APPROX 1545, EDUCATED ON ALL DISCHARGE INSTRUCTIONS INCLUDING FOLLOW UP APPOINTMENTS AND MEDICATIONS. IV AND SECTION WEAVER REMOVED, HOURLY ROUNDING COMPLETED.
--- NOTE | 2019-09-06 17:29 | EKG ---
[place] [address] ELECTROCARDIOGRAM REPORT Name: YADIRADENIAELIEZER CRAIN Room: [address] M.R.#: [id number] Admission: 09/04/19 Attend Phys: Woo Sorensen Discharge: 09/06/19 Date of : 45 Report #: [id number] THIS REPORT FOR: //name// [facility] Test Date: 2019-09-06 Test Time: 10:51:47 Pat Name: DENIA MAY Department: Room: [address] Gender: F Lead Performance Support Analyst: : 1945 Requested By: Rajani Gonzalez Order Number: [id number] Jarett MD: Marco May Measurements Intervals [place] Rate: 66 P: 56 RI: 214 QRS: 36 QRSD: 86 T: 21 QT: 440 QTc: 461 Interpretive Statements Sinus rhythm Borderline prolonged RI interval Compared to ECG 09/05/2019 09:40:54 No significant changes Electronically Signed On 09-06-2019 17:29:47 CROWN CERAMIST by Marco May [email or web address] <ELECTRONICALLY SIGNED> By: Marco May MD, [facility] 09/06/19 1729 1051 1051 Marco May MD, [facility] /EPI
== END 2019-09-06 15:39 | disposition home or self-care (01) ==
LOC: M.ERS 17:14 → M.2W 17:58 → M.TBA-ER 17:58 → M.2W 17:58
PROVIDERS: Personal Emergency Response Attendant; ADMIT Family Medicine
DX: I48.20 Chronic atrial fibrillation, unspecified (principal); D68.59 Other primary thrombophilia; I10 Essential (primary) hypertension; E78.5 Hyperlipidemia, unspecified; I27.20 Pulmonary hypertension, unspecified; I73.9 Peripheral vascular disease, unspecified; R91.1 Solitary pulmonary nodule; I82.412 Acute embolism and thrombosis of left femoral vein; Z79.01 Long term (current) use of anticoagulants; Z79.899 Other long term (current) drug therapy

== ENCOUNTER → 2019-10-05 | Outpatient (CLI) | payer MEDICARE, BC ==
[~2019-10-05] MED LIST changes: +BACTRIM DS TAB1 EAC1 PO; +DILTIAZEM 24HR180 M1 PO; +ELIQUIS5 MG PO
== END ==
LOC: M.ULTRA 12:45
DX: Z12.31 Encounter for screening mammogram for malignant neoplasm of breast (principal); I82.A12 Acute embolism and thrombosis of left axillary vein

== ENCOUNTER → 2019-12-09 | Outpatient (CLI) | payer MEDICARE, BC ==
[2019-12-09 09:17] LABS: CREATININE 0.7 mg/dL (0.6-1.3)
== END ==
LOC: M.LAB 08:30 → M.CT 09:30 → M.LAB 10:30 → M.CT 11:30
PROVIDERS: Internal Medicine Cardiovascular Disease
DX: Z01.812 Encounter for preprocedural laboratory examination (principal); R91.1 Solitary pulmonary nodule; R07.9 Chest pain, unspecified; I82.409 Acute embolism and thrombosis of unspecified deep veins of unspecified lower extremity

== ENCOUNTER 2020-06-20 23:42 | Emergency (ER) | payer MEDICARE, BC ==
[~2020-06-20] VITALS: Ht 172.7 cm; Wt 79.4 kg
[2020-06-21] MEDS ORDERED: MEDROLDOSEPACK PO (01:30)
[2020-06-21 01:36] VITALS: BP 166/75
== END 2020-06-21 01:37 | disposition home or self-care (01) ==
LOC: M.ERS 23:42
DX: L23.7 Allergic contact dermatitis due to plants, except food (principal); I10 Essential (primary) hypertension; I48.91 Unspecified atrial fibrillation; E78.00 Pure hypercholesterolemia, unspecified

== ENCOUNTER → 2020-11-28 | Outpatient (CLI) | payer MEDICARE, BC ==
[~2020-11-28] MED LIST changes: +MEDROLDOSEPACK PO
== END ==
LOC: M.RAD 10:42
PROVIDERS: ATTEND Family Medicine
DX: Z12.31 Encounter for screening mammogram for malignant neoplasm of breast (principal)

== ENCOUNTER → 2021-01-21 | Outpatient (CLI) | payer MEDICARE, BC | LOC: M.CT 10:43 | PROVIDERS: ATTEND Family Medicine | DX: J84.10 Pulmonary fibrosis, unspecified (principal); R91.1 Solitary pulmonary nodule ==

== ENCOUNTER → 2021-12-10 | Outpatient (CLI) | payer MEDICARE, BC | LOC: M.RAD 09:45 | PROVIDERS: ATTEND Family Medicine | DX: Z12.31 Encounter for screening mammogram for malignant neoplasm of breast (principal) ==